=== PATIENT | female | born 1945 | race Caucasian/White ===

== ENCOUNTER 2024-10-27 15:51 | Emergency (ER) | payer MEDICARE, SELFPAY ==
--- NOTE | ~2024-10-27 | CT_ITS ---
EXAM: CT NECK SOFT TISSUE WITHOUT IV CONTRAST INDICATION: Left parotid swelling, pain COMPARISON: None. TECHNIQUE: Axial CT imaging of the soft tissues of the neck was acquired without intravenous contrast. All CT exams at this location are performed using dose optimization techniques as appropriate to a performed exam including at least one of the following: * Automated exposure control * Adjustment of the mA and/or kV according to patient size (this includes techniques or standardized protocols for targeted exams where dose is matched to indication / reason for exam; i/e/ extremities or head) * Use of iterative reconstructive technique DLP: 537 mGy-cm FINDINGS: There is diffuse edematous changes of the left parotid gland. There is a soft tissue nodule within the anterior portion of the parotid gland likely representing an intraparotid lymph node however findings are nonspecific. This nodule measures 0.9 x 0.5 cm. Mild inflammatory stranding is extending inferiorly from the parotid gland into the submandibular region. The left submandibular gland appears unremarkable. No focal fluid collections are seen. There are multiple small lymph nodes scattered throughout the bilateral anterior and posterior cervical chains which are otherwise not pathologically enlarged. The musculature of the neck is symmetric. The vasculature of the neck demonstrates normal course and caliber. The bilateral submandibular glands and thyroid gland are normal in appearance. The mucosa of the aerodigestive tract is normal in appearance. The imaged intracranial structures are unremarkable. The skull base foramina are symmetric. Degenerative changes with disc space narrowing and osteophyte formation is seen throughout the cervical spine. CT/CT soft tissue neck wo IV con IMPRESSION: 1. Diffuse edematous changes of the left parotid gland consistent with parotiditis. No focal fluid collections are seen. 2. Soft tissue nodule within the anterior portion of the left parotid gland likely representing an intraparotid lymph node however findings are nonspecific. 3. Multiple small lymph nodes scattered throughout the bilateral anterior and posterior cervical chains which are otherwise not pathologically enlarged. Electronically signed by: Magdaleno Conde MD 10/27/2024 09:56 PM [facility]
[2024-10-27 16:07] VITALS: BP 173/76; PULSE 80; RESP 16; TEMP 36.8; O2SAT 97; BMI 35.1
--- NOTE | 2024-10-27 16:17 | ED.GENADULT ---
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 Patient reports the pain started last night. She has pain to the left side of her neck just in front of her ear. The area is swollen to her. She reports that when she was younger she had a cyst on the contralateral side and ?that gland was removed. ? She has no dental pain, no ear pain, no pain into her shoulder or chest Denies any trauma to the area. She reports she has been ?salivating more than usual. ? Related Data Previous Rx's ?Medication ?Instructions ?Recorded amoxicillin 875 mg-potassium 1 tab PO Q12H #14 tabs 10/27/24 clavulanate 125 mg tablet Allergies Allergy/AdvReac Type Severity Reaction Status Date / Time esomeprazole [From NEXIUM] Allergy Unknown VERY SHAKY Verified 10/27/24 16:09 Iodinated Contrast Media Allergy Unknown RASH Verified 10/27/24 16:09 [IV CONTRAST] iodine [IODINE] Allergy Unknown RASH Verified 10/27/24 16:09 Review of Systems Constitutional: Constitutional: Denies body ache(s), Denies chills, Denies fever(s) and Denies frequent falls Eyes: Eyes: Denies blurry vision and Denies seeing flashes ENT: Reports neck mass, Reports neck pain, Denies throat swelling and Denies tongue swelling Cardiovascular: Cardiovascular: Denies chest pain and Denies dyspnea Respiratory: Respiratory: Denies cough and Denies dyspnea Gastrointestinal: Gastrointestinal: Denies abdominal pain, Denies nausea and Denies vomiting Musculoskeletal: Musculoskeletal: Denies back pain and Reports neck pain Integumentary/Breasts: Skin/Breast: Denies rash Neurologic: Denies frequent falls Allergic/Immunologic: Allergic/Immunologic: Denies throat swelling and Denies tongue swelling PMF Social History Social History Advance Directives: No Advance Directives Information Provided: No Do you have a plan to hurt others: No Plan Physical Exam ED Vital Signs: Vital Signs - 24 hr 10/27/24 16:07 10/27/24 19:17 10/27/24 20:18 Temperature 98.2 F 96.9 F 97.7 F Pulse Rate 80 69 67 Respiratory Rate 16 16 16 Blood Pressure 173/76 H 150/71 H 173/61 H Pulse Oximetry 97 99 98 Oxygen Delivery Method Room Air Room Air Room Air 10/27/24 22:14 10/27/24 22:31 Temperature 97.2 F 97.2 F Pulse Rate 67 67 Respiratory Rate 16 16 Blood Pressure 158/65 H 158/65 H Pulse Oximetry 96 96 Oxygen Delivery Method Room Air Room Air BMI result Body Mass Index 35.1 Const General: healthy appearing, comfortable, no acute distress, alert and awake Nutritional Appearance: well nourished Orientation/consciousness: patient oriented x3 HENMT Other: There is left facial edema anterior to the ear in the area of the parotid gland. This area is tender to palpation. No overlying erythema Head: Yes atraumatic Ears: TM's normal bilaterally and EAC's normal Eyes Eyelids: Yes eyelids normal Conjunctivae: conjunctivae normal Sclerae: sclerae normal Corneas: corneas normal Pupils: Equal, round and reactive pupils present EOM: EOMs intact bilaterally Neck Neck: Yes full ROM Resp Effort & Inspection: normal respiratory effort, able to speak in complete sentences and not labored Skin General skin exam: elasticity normal Neuro General: patient oriented x3 Cranial nerves: Yes Equal, round and reactive pupils present and Yes Bilaterally intact EOM present Cognition (Neuro): normal cognition Extrem Other: Moving all extremities well without any obvious deformities Course Course Course Narrative: RME: 79 yold female presents to the ED for left jaw pain/swelling since last night. Physical exam slight swelling on left mandible and tenderness on palpation. labs, SARS, strep ordered. Patient denies any chest pain, shortness of breath, neck pain, or referred arm pain. Medications Administered Discontinued Medications Generic Name Dose Route Start Last Admin Trade Name Freq PRN Reason Stop Dose Admin Amoxicillin/Clavulanate Potassium 875 mg 10/27/24 22:14 10/27/24 22:27 Amoxicillin/Potassium Clav 875 Mg Tablet PO 10/27/24 22:15 875 mg ONCE ONE Administration Medical Decision Making Medical Decision Making MDM Narrative: 79-year-old female with past medical history as documented above presents for evaluation of left facial swelling and pain. She appears to have parotitis clinically. She has no dental pain, no evidence of dental abscess or gingivitis. She has no edema extending down her neck. No evidence of otitis media or otitis externa. Despite the jaw pain this is not consistent with cardiac disease as there is tenderness to palpation and obvious edema. Plan for CT scan of the abdomen pelvis. This will have to be done without contrast as the patient has an IV dye allergy. Differential Diagnosis Differential Diagnoses: The differential diagnosis associated with the presentation includes Parotitis Dental abscess Dental caries Mumps Sialoadenitis Lab Data MDM Lab Attestation statement: I reviewed the patient's lab results. No leukocytosis or significant anemia. Normal platelet count. No electrolyte abnormalities. 10/27/24 19:06 10/27/24 19:06 Labs: Lab Results 10/27/24 Range/Units 19:06 WBC 9.4 (4.8-10.8) X10*3/uL RBC 3.84 L (4.20-5.50) X10*6/uL Hgb 12.3 (12.0-16.0) g/dl Hct 36.2 L (37.0-47.0) % MCV 94.3 (80.0-98.0) fL MCH 32.0 (27.0-33.0) pg MCHC 34.0 (31.0-35.0) g/dl RDW 14.1 (11.0-16.0) % Plt Count 226 (160-400) X10*3/uL MPV 10.2 (9.4-12.3) fL Immature Gran % (Auto) 0.2 (0.0-0.4) % Neut % (Auto) 48.4 (45-73) % Lymph % (Auto) 41.1 H (20-40) % [place] % (Auto) 6.7 (2-11) % Eos % (Auto) 3.2 (0-4) % Baso % (Auto) 0.4 (0-2) % Lymph # (Auto) 3.9 (1.2-4.9) X10*3/uL [place] # (Auto) 0.6 (0.1-1.2) X10*3/uL Eos # (Auto) 0.3 (0.0-0.4) X10*3/uL Baso # (Auto) 0.0 (0.0-0.2) X10*3/uL Abs Immat Gran (auto) 0.02 (0.00-0.03) X10*3/uL Absolute Neuts (auto) 4.5 (2.0-8.3) x10*3/uL Absolute Nucleated RBC 0.000 (0.0-0.012) X10*3/uL Nucleated RBC % (auto) 0.0 (0.0-0.2) /100WBC Sodium 144 (135-145) mmol/L Potassium 4.9 (3.3-5.1) mmol/L Chloride 108 (96-108) mmol/L Carbon Dioxide 29 (22-29) mmol/L Anion Gap 12 (12-20) BUN 16 (9-16) mg/dL Creatinine 1.06 (0.5-1.4) mg/dL Estim Creat Clear Calc 42.3 Estimated GFR 50 Random Glucose 80 (60-115) mg/dL Calcium 10.1 (8.4-10.2) mg/dL Total Bilirubin 0.3 (0.0-1.0) mg/dL AST 21 (5-31) U/L ALT 16 (0-31) U/L Alkaline Phosphatase 76 (39-117) U/L Total Protein 7.7 (6.5-8.0) g/dL Albumin 4.2 (3.5-5.0) g/dL Influenza Type A (PCR) NEGATIVE (Negative) Influenza Type B (PCR) NEGATIVE (Negative) RSV RNA Qual (PCR) NEGATIVE (Negative) SARS-CoV-2 RNA (RT-PCR) NEGATIVE (Negative) S. pyogenes GrpA NEVIN Negative (Negative) Radiology Impression Discussion of test interpretation with radiology: I have reviewed the radiologist's reading. Radiologist Impression: FINDINGS: There is diffuse edematous changes of the left parotid gland. There is a soft tissue nodule within the anterior portion of the parotid gland likely representing an intraparotid lymph node however findings are nonspecific. This nodule measures 0.9 x 0.5 cm. Mild inflammatory stranding is extending inferiorly from the parotid gland into the submandibular region. The left submandibular gland appears unremarkable. No focal fluid collections are seen. There are multiple small lymph nodes scattered throughout the bilateral anterior and posterior cervical chains which are otherwise not pathologically enlarged. The musculature of the neck is symmetric. The vasculature of the neck demonstrates normal course and caliber. The bilateral submandibular glands and thyroid gland are normal in appearance. The mucosa of the aerodigestive tract is normal in appearance. The imaged intracranial structures are unremarkable. The skull base foramina are symmetric. Degenerative changes with disc space narrowing and osteophyte formation is seen throughout the cervical spine. CT/CT soft tissue neck wo IV con IMPRESSION: 1. Diffuse edematous changes of the left parotid gland consistent with parotiditis. No focal fluid collections are seen. 2. Soft tissue nodule within the anterior portion of the left parotid gland likely representing an intraparotid lymph node however findings are nonspecific. 3. Multiple small lymph nodes scattered throughout the bilateral anterior and posterior cervical chains which are otherwise not pathologically enlarged. Discharge Plan Discharge Clinical Impression: Acute parotitis Patient Disposition: Home, Self-Care Instructions: Adenitis (ED) Additional Instructions: Take Augmentin twice daily for the next 7 days. Apply warm compresses to the swollen area. You may also benefit from sucking on sour candies Prescriptions: New amoxicillin-pot clavulanate 875-125 mg tablet 1 tab PO Q12H Qty: 14 0RF Interventions: ED Discharge Assessment Last Done: 10/27/24 22:31 Discharge Date/Time: 10/27/24 22:32 Print Language: [place]ovan
[2024-10-27 19:13] LABS: MANUAL DIFF FLAG NO
[2024-10-27 19:17] VITALS: BP 150/71; PULSE 69; RESP 16; TEMP 36.1; O2SAT 99
[2024-10-27 19:22] LABS: IDNOW Serial# 58CA691E; Strep A Nucleic Acid Negative (Negative)
[2024-10-27 19:35] LABS: Alanine Aminotransferase 16 U/L (0-31); Albumin Level 4.2 g/dL (3.5-5.0); Alkaline Phosphatase 76 U/L (39-117); Anion Gap 12 (12-20); Aspartate Amino Transferase 21 U/L (5-31); Bilirubin Total 0.3 mg/dL (0.0-1.0); Blood Urea Nitrogen 16 mg/dL (9-16); Calcium 10.1 mg/dL (8.4-10.2); Carbon Dioxide 29 mmol/L (22-29); Chloride 108 mmol/L (96-108); Creatinine Clr Calc Pharmacy 42.3; Estimated Glomerular Filt Rate 50; Glucose Random 80 mg/dL (60-115); Potassium 4.9 mmol/L (3.3-5.1); Sodium 144 mmol/L (135-145); Total Protein 7.7 g/dL (6.5-8.0)
[2024-10-27 19:39] LABS: Basophils Percent Auto 0.4 % (0-2); Eosinophils Absolute Auto 0.3 X10*3/uL (0.0-0.4); Eosinophils Percent Auto 3.2 % (0-4); Hematocrit 36.2 % (37.0-47.0); Hemoglobin 12.3 g/dl (12.0-16.0); Imm Gran Abs Auto 0.02 X10*3/uL (0.00-0.03); Imm Gran Pct Auto 0.2 % (0.0-0.4); Lymphocytes Absolute Auto 3.9 X10*3/uL (1.2-4.9); Lymphocytes Percent Auto 41.1 % (20-40); Mean Corpuscular Volume 94.3 fL (80.0-98.0); Mean Platelet Volume 10.2 fL (9.4-12.3); Monocytes Absolute Auto 0.6 X10*3/uL (0.1-1.2); Monocytes Percent Auto 6.7 % (2-11); Neutrophils Absolute Auto 4.5 x10*3/uL (2.0-8.3); Neutrophils Percent Auto 48.4 % (45-73); Platelet Count 226 X10*3/uL (160-400); Red Blood Count 3.84 X10*6/uL (4.20-5.50); Red Cell Distribution Width 14.1 % (11.0-16.0); White Blood Count 9.4 X10*3/uL (4.8-10.8)
[2024-10-27 19:52] LABS: Influenza A PCR NEGATIVE (Negative); Influenza B PCR NEGATIVE (Negative); Resp Syncy Virus RNA Qual PCR NEGATIVE (Negative); SARS COV2 PCR INHOUSE NEGATIVE (Negative)
[2024-10-27 20:18] VITALS: BP 173/61; PULSE 67; RESP 16; TEMP 36.5; O2SAT 98
[2024-10-27 22:14] VITALS: BP 158/65; PULSE 67; RESP 16; TEMP 36.2; O2SAT 96
[2024-10-27] MEDS: Amoxicillin/Potassium Clav 875 MG TABLET PO (22:27)
[2024-10-27 22:31] VITALS: BP 158/65; PULSE 67; RESP 16; TEMP 36.2; O2SAT 96
== END 2024-10-27 22:32 | disposition home or self-care (01) ==
PROVIDERS: Physician Assistant; Emergency Provider Emergency Medicine
DX: K11.21 Acute sialoadenitis (principal); Z03.818 Encounter for observation for suspected exposure to other biological agents ruled out; E11.9 Type 2 diabetes mellitus without complications; I10 Essential (primary) hypertension; E03.9 Hypothyroidism, unspecified
CPT/HCPCS: 0241U; 36415; 70490; 80053; 85025; 87651; 99283; 99284